=== PATIENT | male | born 1975 | race Caucasian/White ===

== ENCOUNTER 2017-11-19 15:10 | Emergency (ER) | payer MEDICAID ==
[~2017-11-19] VITALS: Ht 180.3 cm; Wt 83.0 kg
[2017-11-19 15:15] VITALS: BP 137/91
[2017-11-19] MEDS ORDERED: KETOROLAC TROMETH 60MG/2ML VIAL IM ONE (16:45)
== END 2017-11-19 16:50 | disposition home or self-care (01) ==
LOC: ER 15:13
DX: G43.909 Migraine, unspecified, not intractable, without status migrainosus (principal)
CPT/HCPCS: 70450; 96372; 99284; J1885

== ENCOUNTER 2017-11-24 10:03 | Emergency (ER) | payer MEDICAID ==
[~2017-11-24] VITALS: Ht 180.3 cm; Wt 83.9 kg
[2017-11-24 12:09] VITALS: BP 117/73
[2017-11-24] MEDS ORDERED: KETOROLAC TROMETH 60MG/2ML VIAL IM ONE (13:30)
== END 2017-11-24 14:27 | disposition home or self-care (01) ==
LOC: ER 10:03
DX: G43.009 Migraine without aura, not intractable, without status migrainosus (principal); F17.210 Nicotine dependence, cigarettes, uncomplicated; R42 Dizziness and giddiness
CPT/HCPCS: 93005; 96372; 99283; J1885

== ENCOUNTER 2018-01-04 11:15 | Emergency (ER) | payer MEDICAID ==
[~2018-01-04] VITALS: Ht 180.3 cm; Wt 83.9 kg
[2018-01-04 11:40] LABS: Basophils # (auto) 0 uL; Basophils % (auto) 0.4 % (0.0-2.0); Eosinophils # (auto) 0 uL; Eosinophils % (auto) 0.3 % (0.0-7.0); Hematocrit 46.2 % (41.0-53.0); Hemoglobin 15.9 g/dL (13.5-17.5); Lymphocytes % (auto) 17.9 % (10.0-50.0); Mean Corpuscular Hemoglobin 32.9 pg (28.0-32.0); Mean Corpuscular Hgb Conc. 34.4 g/dL (32.0-36.0); Mean Corpuscular Volume 95.7 fL (80.0-100.0); Monocytes # (auto) 0.6 uL; Monocytes % (auto) 5.6 % (0.0-12.0); Neutrophils # (auto) 8.6 uL; Neutrophils % (auto) 75.8 % (37.0-80.0); Platelet Count (auto) 202 10^3/uL (140-450); Red Blood Cells 4.82 10^6/uL (4.5-5.90); Red Cell Distribution Width 13.1 % (11.8-14.3); White Blood Cell 11.3 10^3/uL (4.4-10.8)
[2018-01-04 12:10] LABS: Alanine Aminotransferase 32 U/L (16-61); Albumin 4.1 g/dL (3.4-5.0); Alkaline Phosphatase 56 U/L (45-117); Anion Gap 9 (5-15); Aspartate Aminotransferase 17 U/L (15-37); BUN/Creatinine Ratio 9.8; Bilirubin, Total 0.8 mg/dL (0.2-1.0); Blood Urea Nitrogen 8 mg/dL (7-18); Calcium 9.2 mg/dL (8.5-10.1); Carbon Dioxide 23 mmol/L (21-32); Chloride 108 mmol/L (98-107); GFR African American 132 mL/min; GFR Non-African American 109 mL/min; Glucose 97 mg/dL (74-106); Potassium 3.7 mmol/L (3.5-5.1); Sodium 140 mmol/L (136-145); Total Protein 7.5 g/dL (6.4-8.2)
[2018-01-04] MEDS ORDERED: LORazepam 0.5 MG TAB PO ONE (12:15)
[2018-01-04] MEDS ORDERED: ASPirin 81 mg TAB PO ONE (12:15)
[2018-01-04 13:54] VITALS: BP 124/85
== END 2018-01-04 14:00 | disposition home or self-care (01) ==
LOC: ER 11:15
DX: R07.89 Other chest pain (principal); F41.9 Anxiety disorder, unspecified; F17.210 Nicotine dependence, cigarettes, uncomplicated
CPT/HCPCS: 36415; 80053; 84484; 85025; 93005